=== PATIENT | male | born 1995 | race Caucasian/White ===

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

== ENCOUNTER 2017-12-15 02:10 | Emergency (ER) | payer MEDICAID ==
[2017-12-15 02:15] VITALS: BP 135/75
--- NOTE | 2017-12-15 02:45 | ER Document Report ---
ED General - General Chief Complaint: Sore Throat Stated Complaint: SORE THROAT/ LUMP LEFT ARMPIT Time Seen by Provider: 12/15/17 02:32 Notes: Patient is a 22-year-old male who presents with complaint of station of throat pain. Said the pain is mostly in the anterior portion of his throat. Says he gets a rubbing type sensation when he swallows. He does not have any actual difficulty swallowing. No difficulty breathing. No fevers. No recent runny nose cough or congestion. He had a tonsillectomy as a child. He did get vaccinations going up. Patient's second complaint is of a small lump in his left armpit. No fevers. No swelling. He has not noticed any other lumps anywhere else. TRAVEL OUTSIDE OF THE [place] IN LAST 30 DAYS: No - Related Data Allergies/Adverse Reactions: No Known Allergies Allergy (Verified 11/10/16 08:13) Past Medical History - Social History Smoking Status: Never Smoker Frequency of alcohol use: None Drug Abuse: None Family History: Reviewed & Not Pertinent Patient has suicidal ideation: No Patient has homicidal ideation: No - Past Medical History Cardiac Medical History: Denies: Hx Coronary Artery Disease, Hx Heart Attack, Hx Hypertension Pulmonary Medical History: Denies: Hx Asthma, Hx Bronchitis, Hx COPD, Hx Pneumonia Neurological Medical History: Denies: Hx Cerebrovascular Accident, Hx Seizures Renal/ Medical History: Denies: Hx Peritoneal Dialysis Musculoskeletal Medical History: Denies Hx Arthritis Psychiatric Medical History: Reports: Hx Attention Deficit Hyperactivity Disorder Past Surgical History: Reports: Hx Orthopedic Surgery - carpal tunnel R wrist, Hx Tonsillectomy - adenoids - Immunizations Immunizations up to date: Yes Hx Diphtheria, Pertussis, Tetanus Vaccination: Yes Review of Systems - Review of Systems Notes: My Normal Review Basic REVIEW OF SYSTEMS: CONSTITUTIONAL : Denies fever, chills, or sweats. Denies recent illness. EENT: Sore throat RESPIRATORY: Denies cough, cold, or chest congestion. Denies shortness of breath, difficulty breathing, or wheezing. GASTROINTESTINAL: Denies abdominal pain. Denies nausea, vomiting, or diarrhea. NEUROLOGICAL: Denies headache. ALL OTHER SYSTEMS REVIEWED AND NEGATIVE. Physical Exam - Vital signs Vitals: Temp Pulse Resp BP Pulse Ox 98 F 79 16 135/75 H 98 12/15/17 02:10 12/15/17 02:10 12/15/17 02:10 12/15/17 02:10 12/15/17 02:10 - Notes Notes: General Appearance: Well nourished, alert, cooperative, no acute distress, no obvious discomfort. Appearing. Is sitting up in normal position. He is breathing normally. has no stridor. No increased work of breathing. Vitals: reviewed, See vital signs table. Head: no swelling or tenderness to the head Eyes: PERRL, EOMI, Conjuctiva clear Mouth: No decreasd moisture Throat: No tonsillar inflammation, No airway obstruction, No lymphadenopathy Neck: Supple, no neck tenderness, No neck swelling. No neck redness. Lungs: No wheezing, No rales, No rhonci, No accessory muscle use, good air exchange bilaterally. Heart: Normal rate, Regular rythm, No murmur, no rub Emphatic: Patient does have a small subcutaneous nodule left axilla consistent with a slightly enlarged lymph node. Is no redness or swelling around it. I palpated along the clavicle region as well as the remainder of the axilla and into the neck. I do not feel any other enlarged lymph nodes. Skin: warm, dry, appropriate color, no rash Neuro: speech clear, oriented x 3, normal affect, responds appropriately to questions. Course - Re-evaluation Re-evalutation: 12/15/17 05:59 X-ray well. I do not see any concerning findings on exam. She is having no airway compromise. No difficulty breathing or swallowing. I informed him to rest over the next 24 hours. Encourage him return to ER if he has fevers or worsening sensation of sore throat. Encourage him return to ER if is any difficulty breathing or swallowing. I informed him to have the lymph node in his left axilla rechecked within a few months. I encouraged him to follow-up with sooner if the lymph node increases or if he has other lymph nodes this appear to be enlarged. Also encourage him return to ER if he has any redness or swelling in the axilla. Patient agrees with plan will be discharged home. Dictation of this chart was performed using voice recognition software; therefore, there may be some unintended grammatical errors. - Vital Signs Vital signs: Temp Pulse Resp BP Pulse Ox 98 F 79 16 135/75 H 98 12/15/17 02:10 12/15/17 02:10 12/15/17 02:10 12/15/17 02:10 12/15/17 02:10 Discharge - Discharge Clinical Impression: Sore throat, Enlarged lymph node Condition: Good Disposition: HOME, SELF-CARE Additional Instructions: Please return to the ER immediately if you develop difficulty breathing, worsening difficulty swallowing, fevers, or feel unwell. It appears you have a slightly enlarged lymph node in your left armpit. Please have this reevaluated in 3 months. Please return to the ER immediately if you develop several other enlarged lymph nodes, redness or swelling in your armpit, or if you have any further concerns.
== END 2017-12-15 02:48 | disposition home or self-care (01) ==
LOC: ER 02:10
DX: J02.9 Acute pharyngitis, unspecified (principal); R59.9 Enlarged lymph nodes, unspecified
CPT/HCPCS: 99282

== ENCOUNTER 2018-01-20 14:48 | Emergency (ER) | payer MEDICAID ==
[2018-01-20 15:30] VITALS: BP 113/64
[2018-01-20] MEDS ORDERED: ONDANSETRON 4 MG TAB.RAPDIS PO ONE (16:00)
[2018-01-20 17:01] LABS: A TYPE INFLUENZA AG NEGATIVE (NEGATIVE); B INFLUENZA AG NEGATIVE (NEGATIVE)
--- NOTE | 2018-01-20 17:29 | ER Document Report ---
ED GI/ - General Chief Complaint: Nausea/Vomiting/Diarrhea Stated Complaint: FLU SYMPTOMS Time Seen by Provider: 01/20/18 15:58 Mode of Arrival: Ambulatory Information source: Patient Notes: Chief complaint: Sore throat History of complain:( obtained from----patient) 22 years old male presents today with sore throat general body aches and pain nauseous vomited couple of times and had one loose stools for the last 2 days. Generalized body aches and pain were more prominent. Denies any cough shortness of breath. Denies any other constitutional symptoms Onset: Gradual Duration: 2 days Severity: Mild to moderate Quality: Crampy achy Context: Unknown Exacerbating factor and relieving factors: None REVIEW OF SYSTEMS: CONSTITUTIONAL : Denies fever, chills, or sweats. Denies recent illness. EENT: Denies eye, ear, throat, or mouth pain or symptoms. Denies nasal or sinus congestion or discharge. Denies throat, tongue, or mouth swelling or difficulty swallowing. CARDIOVASCULAR: Denies chest pain. Denies palpitations or racing or irregular heart beat. Denies ankle edema. RESPIRATORY: Denies cough, cold, or chest congestion. Denies shortness of breath, difficulty breathing, or wheezing. GASTROINTESTINAL: Denies distention. Denies nausea, vomiting, or diarrhea. Denies blood in vomitus, stools, or per rectum. Denies black, tarry stools. Denies constipation. GENITOURINARY: Denies difficulty urinating, painful urination, burning, frequency, blood in urine, or discharge. FEMALE GENITOURINARY: Denies vaginal bleeding, heavy or abnormal periods, irregular periods. Denies vaginal discharge or odor. MUSCULOSKELETAL: Denies back or neck pain or stiffness. Denies joint pain or swelling. SKIN: Denies rash, lesions or sores. HEMATOLOGIC : Denies easy bruising or bleeding. LYMPHATIC: Denies swollen, enlarged glands. NEUROLOGICAL: Denies confusion or altered mental status. Denies passing out or loss of consciousness. Denies dizziness or lightheadedness. Denies headache. Denies weakness or paralysis or loss of use of either side. Denies problems with gait or speech. Denies sensory loss, numbness, or tingling. Denies seizures. PSYCHIATRIC: Denies anxiety or stress. Denies depression, suicidal ideation, or homicidal ideation. ALL OTHER SYSTEMS REVIEWED AND NEGATIVE. PHYSICAL EXAMINATION: GENERAL: Well-appearing, well-nourished and in no acute distress. HEAD: Atraumatic, normocephalic. EYES: Pupils equal round and reactive to light, extraocular movements intact, conjunctiva are normal. ENT: Nares patent, oropharynx clear without exudates but erythematous. Moist mucous membranes. NECK: Normal range of motion, supple without lymphadenopathy LUNGS: Breath sounds clear to auscultation bilaterally and equal. No wheezes rales or rhonchi. HEART: Regular rate and rhythm without murmurs ABDOMEN: Soft, nontender, nondistended abdomen. No guarding, no rebound. No masses appreciated. Examination of genitals-deferred Musculoskeletal: Normal range of motion, no pitting or edema. No cyanosis. NEUROLOGICAL: Cranial nerves grossly intact. Normal speech, normal gait. Normal sensory, motor exams PSYCH: Normal mood, normal affect. SKIN: Warm, Dry, normal turgor, no rashes or lesions noted. Dictation was performed using [employer] voice recognition software TRAVEL OUTSIDE OF THE [place] IN LAST 30 DAYS: No - HPI Notes: 01/20/18 17:27 Dictated - Related Data Allergies/Adverse Reactions: No Known Allergies Allergy (Verified 01/20/18 14:50) Past Medical History - Social History Smoking Status: Never Smoker Chew tobacco use (# tins/day): No Frequency of alcohol use: None Drug Abuse: None Lives with: Family Family History: Reviewed & Not Pertinent Patient has suicidal ideation: No Patient has homicidal ideation: No - Past Medical History Cardiac Medical History: Denies: Hx Coronary Artery Disease, Hx Heart Attack, Hx Hypertension Pulmonary Medical History: Denies: Hx Asthma, Hx Bronchitis, Hx COPD, Hx Pneumonia Neurological Medical History: Denies: Hx Cerebrovascular Accident, Hx Seizures Renal/ Medical History: Denies: Hx Peritoneal Dialysis Musculoskeletal Medical History: Denies Hx Arthritis Psychiatric Medical History: Reports: Hx Attention Deficit Hyperactivity Disorder Past Surgical History: Reports: Hx Orthopedic Surgery - carpal tunnel R wrist, Hx Tonsillectomy - adenoids - Immunizations Immunizations up to date: Yes Hx Diphtheria, Pertussis, Tetanus Vaccination: Yes Review of Systems - Review of Systems Notes: Dictated Physical Exam - Vital signs Vitals: Temp Pulse Resp BP Pulse Ox 97.9 F 92 18 113/64 100 01/20/18 15:29 01/20/18 15:29 01/20/18 15:29 01/20/18 15:29 01/20/18 15:29 - Notes Notes: Dictated Course - Vital Signs Vital signs: Temp Pulse Resp BP Pulse Ox 97.9 F 92 18 113/64 100 01/20/18 15:29 01/20/18 15:29 01/20/18 15:29 01/20/18 15:29 01/20/18 15:29 Discharge - Discharge Clinical Impression: Viral syndrome Condition: Fair Disposition: HOME, SELF-CARE Instructions: Acetaminophen, Viral Syndrome ([facility]) Prescriptions: Ondansetron [Zofran Odt 4 mg Tablet] 1 - 2 tab PO Q4H PRN #15 tab.rapdis PRN Reason: For Nausea/Vomiting Referrals: RAMBO LONDONO MD [Primary Care Provider] - Follow up as needed
== END 2018-01-20 17:37 | disposition home or self-care (01) ==
LOC: ER 14:48
DX: B34.9 Viral infection, unspecified (principal); R11.2 Nausea with vomiting, unspecified; R19.7 Diarrhea, unspecified; J02.9 Acute pharyngitis, unspecified; M79.10 Myalgia, unspecified site
CPT/HCPCS: 99283; 87070; 87880; 87804; S0119